=== PATIENT | male | born 1960 | race Asian ===

== ENCOUNTER 2019-12-26 20:59 | Emergency (ER) | payer OTHER ==
[~2019-12-26] VITALS: Ht 170.2 cm; Wt 64.0 kg
[2019-12-26 21:11] VITALS: Ht 170.2 cm; Wt 64.0 kg
[2019-12-27 00:10] VITALS: BP 121/74
== END 2019-12-27 00:10 | disposition home or self-care (01) ==
LOC: ED 20:59
DX: R22.0 Localized swelling, mass and lump, head (principal); R42 Dizziness and giddiness; R11.10 Vomiting, unspecified